=== PATIENT | male | born 1970 | race Caucasian/White ===

== ENCOUNTER → 2017-03-25 | Outpatient (CLI) | payer OTHER ==
[~2017-03-25] VITALS: Ht 175.3 cm; Wt 117.9 kg
[~2017-03-25] MED LIST: ACYCLOVIR 400400 MG PO; APAP500; ASPIR 8181 M1 PO; ATIVAN1 MG PO; BREO ELLIPTA 11 EACH IH; BREO ELLIPTA 21 EACH IH; DIOVAN 80 MG TA80 M1 PO; ERY-TAB500 MG PO; FLAGYL 250 MG250 MG PO; HYDROCODONE-AP1 EAC6 PO; HYDROXYZINE HCL25 M1 PO; HYDROXYZINE PAM25 M1 PO; IBUPROFEN 200200 M1 PO; LITHIUM CARBON300 M3 PO; LITHIUM CARBON300 MG PO; LITHIUM CARBON600 MG PO; NEURONTIN 300300 M1 PO; NEURONTIN600 MG PO; NEXIUM40 MG PO; OMEPRAZOLE 20 M20 M1 PO; PENICILLIN V P500 MG PO; PROAIR HFA8.5 GM IH; PROAIR HFA8.5 GM INH; SINGULAIR 10 MG10 M1 PO; SYMBICORT80 MCG/4.1 INH; TESTOSTERO200 MG/1 M IM; TRAMADOL 50 MG50 MG PO; TYLENOL325 MG PO; VENTOLIN17 GM INH; XOLAIR150 MG SUBQ; XOPENEX0.63 MG/3 IH
--- NOTE | ~2017-03-25 | P ---
[facility] [place] [address] PROCEDURE REPORT Name: TACOS VELEZ [facility] Room #: REG VERENA Aragon#: [id number] Admission: 03/25/17 Attend Phys: Patricia Avilez DO Discharge: Date of : 68 Report #: [id number] THIS REPORT FOR: //name// CC: Patricia Ernandez MD DATE OF SERVICE: 03/25/2017 He is patient of Dr. Brody Ernandez. INDICATIONS FOR PROCEDURE: Intermittent bouts of epigastric pain had awaken him from sleep, two to three times a month followed by complete bowel evacuation first of solid and hard stool and then towards the end he had diarrhea. The etiology of this is not clear. He also has epigastric pain from time to time and is uncomfortable to palpation today in the GI lab. DESCRIPTION OF PROCEDURE: Informed consent for this procedure was obtained prior to the administration of any medication. The risks of the procedure which include bleeding, perforation, infection, complications of sedation and the possibility I could miss something have been explained to the patient and he has indicated his consent by signing. Propofol was slowly titrated before and during this procedure and the colonoscopy that followed it. The [facility] upper videoscope was introduced through the upper esophageal sphincter and advanced under direct visualization to the descending duodenum. Findings are noted on withdrawal of the scope. The duodenal mucosa appears normal throughout its entirety. Pylorus, mild erythema is noted. Antrum, mild erythema is noted. Biopsies obtained times 2 from the body and the antrum of the stomach for histopathology to exclude H. pylori infection. Body, normal mucosa. Cardia and fundus, normal mucosa. Retroflex view did not reveal any abnormalities. The scope was withdrawn to the esophagus. The Z-line is appropriately located at the top of the gastric folds and appears normal. The esophageal mucosa has white exudative looking plaques that are adherent to the mucosa. Brushing were obtained from this area for the JESSE prep to make sure we do not miss fungal infection, these white plaques were distributed equally throughout the entire esophagus. The scope was withdrawn. The patient went to the recovery area in stable condition. He tolerated the procedure well. IMPRESSION: 1. White exudate in the esophagus, brushed for JESSE prep. 2. Mild antral erythema. Biopsy is pending. RECOMMENDATIONS: Are to await the biopsy results. We will ask that he continue his proton pump inhibitors. I think it would help with the [facility] and [facility] [address] [place] [address] PROCEDURE REPORT Name: TACOS VELEZ [facility] Room #: REG CLBridger Aragon#: [id number] Admission: 03/25/17 Attend Phys: Patricia Avilez DO Discharge: Date of : 68 Report #: [id number] constipation if he took Citrucel tablets 2 p.o. daily with 2 glasses of water. I would also recommend that he avoid caffeine and high fat foods as these can trigger colon spasms. I would also recommend that he continue proton pump inhibitors for his esophagitis which was grade 1. We will await the JESSE prep. Thank you very much once again for allowing me to participate in his care . PROCEDURE: Diagnostic colonoscopy. INDICATION FOR PROCEDURE: Evaluate intermittent abdominal pain followed by a complete bowel evacuation first of solid stool and then diarrhea. Informed consent for this procedure was obtained prior to the administration of any medication. The risks of the procedure which include bleeding, perforation, infection, complications of sedation and the possibility I could miss something have been explained to the patient and he has indicated his consent by signing. Propofol was slowly titrated before and during this procedure for patient comfort by the anesthesia service. The [employer] colonoscope was introduced through the anal sphincter and advanced under direct visualization to his terminal ileum. Findings are noted on withdrawal of the scope. The terminal ileal mucosa appears normal. Cecum, normal mucosa. Ascending colon, normal mucosa. Hepatic flexure, normal mucosa. Transverse colon, normal mucosa. Splenic flexure, normal mucosa. Descending colon, normal mucosa. Sigmoid colon, normal mucosa. Rectum, normal mucosa. Retroflex view did not reveal any abnormalities. Random biopsies were obtained x 3 from throughout the colon to evaluate microscopic etiologies of this patient's symptoms. Good hemostasis was noted after all biopsies. The scope was withdrawn. The patient went to the recovery area in stable condition. He tolerated the procedure well. IMPRESSION: Normal colonoscopic exam to the terminal ileum. RECOMMENDATIONS: For him to take Citrucel tabs 2 daily with 2 glasses of water as mentioned previously. He should avoid caffeine and high fat food as these will trigger colon spasms. Thank you very much once again for allowing me to participate in his care. <ELECTRONICALLY SIGNED> By: Patricia Avilez DO 03/26/17 0949 1342 0231 Patricia Avilez DO /nt
--- NOTE | ~2017-03-25 | S ---
[facility] [address] SURGICAL PATH RPT PROCEDURE Name: TACOS VELEZ [facility] Room #: REG [facility] PatriziaMarilou.#: [id number] Admission: 03/25/17 Date of : 68 Discharge: Report #: [id number] Path Case #: [id number] PATHOLOGY REPORT COLLECTION DATE: 03/25/2017 RECEIVED DATE: 03/26/2017 SUBMITTING PHYS: Dr. Patricia Avilez OTHER PHYS: Dr. Brody Ernandez SPECIMEN(S) RECEIVED: A.Random gastric bx B.Random colon bx * * * * * * * * * * * * FINAL DIAGNOSIS: A. "Random gastric BX", biopsy: - Gastric mucosa with mild chronic active gastritis, mild activity. - H. pylori organisms PRESENT in large numbers by immunohistochemical stain (block A1); control reacted appropriately. B. "Random colon BX", biopsy: - Colonic mucosa with mild reactive/hyperplastic changes; no evidence of active, lymphocytic, or collagenous colitis. PATHOLOGIST: Barbara Boyd M.D. REPORT ELECTRONICALLY SIGNED BY: Barbara Boyd M.D. DATE/TIME: 03/27/2017 22:23 * * * * * * * * * * * * GROSS PATHOLOGY: A. Received in formalin labeled "Tacos Velez random gastric BX," is a segment of schuster soft tissue measuring 0.8 x 0.3 x 0.2 cm in maximum dimension. The specimen is submitted entirely in cassette A1. B. Received in formalin labeled "Velez, Tacos, random colon BX," are 2 segments of schuster soft tissue measuring 0.7 x 0.2 x 0.2 cm in aggregate dimensions and ranging from 0.3 to 0.4 cm in maximum dimension. The specimen is submitted entirely in cassette B1. (MORRO; 03/26/2017) CLINICAL HISTORY: Abdominal pain, constipation/diarrhea INITIAL CPT CODE(S): A; 15297, 63055 B; 20161 Professional services performed by [facility] at [address] [address] SURGICAL PATH RPT PROCEDURE Name: TACOS VELEZ ZYGMUNT Room #: REG [facility] M.R.#: [id number] Admission: 03/25/17 Date of : 68 Discharge: Report #: [id number] Path Case #: [id number] , [place] [address] Technical services performed by [facility] at [address] [place] [address], [facility] [address], [place] [address]. [facility] [address] [place] [address] PHONE: [phone] DIRECTOR: Bernabe Alcantara M.D. * * * END OF REPORT * * *
== END | disposition home or self-care (01) ==
LOC: GI 09:50
DX: K29.50 Unspecified chronic gastritis without bleeding (principal); K31.89 Other diseases of stomach and duodenum; B96.81 Helicobacter pylori [H. pylori] as the cause of diseases classified elsewhere; K22.8 Other specified diseases of esophagus; I10 Essential (primary) hypertension; J45.909 Unspecified asthma, uncomplicated; G47.33 Obstructive sleep apnea (adult) (pediatric); F31.9 Bipolar disorder, unspecified; F41.9 Anxiety disorder, unspecified
CPT/HCPCS: 62110; 62900

== ENCOUNTER → 2017-04-30 | Outpatient (CLI) | payer OTHER | LOC: ULTRA 14:33 | DX: M79.601 Pain in right arm (principal) ==

== ENCOUNTER → 2019-01-24 | Outpatient (CLI) | payer OTHER ==
[~2019-01-24] MED LIST changes: +LEVSIN0.125 MG PO
== END ==
LOC: RAD 08:05
DX: R06.00 Dyspnea, unspecified (principal)

== ENCOUNTER → 2019-03-04 | Outpatient (CLI) | payer OTHER | LOC: CAT 09:30 | DX: M47.812 Spondylosis without myelopathy or radiculopathy, cervical region (principal); R55 Syncope and collapse; M48.02 Spinal stenosis, cervical region; M25.78 Osteophyte, vertebrae ==

== ENCOUNTER 2019-07-21 15:06 | Observation (INO) | payer OTHER ==
[~2019-07-21] VITALS: Ht 175.3 cm; Wt 113.4 kg
[2019-07-21 15:18] VITALS: BP 125/76
[2019-07-21 15:33] LABS: ABSOLUTE NEUTROPHILS 6.8 thou/uL (1.4-8.2); BASOPHILS 0.5 % (0.0-2.0); EOSINOPHILS 1.2 % (0.0-3.0); HEMATOCRIT 45.9 % (42.0-52.0); HEMOGLOBIN 15.4 gm/dL (14.0-18.0); MCH 30.7 pg (26.0-34.0); MCHC 33.6 g/dL (28.0-37.0); MCV 91.4 fL (80.0-100.0); MONOCYTES 5.2 % (1.0-8.0); PLATELET COUNT 201 thou/uL (150-400); POLYS 78.1 % (36.0-66.0); RBC 5.03 mil/uL (4.50-6.00); RDW 12.9 % (10.5-14.5); WBC 8.7 thou/uL (4.0-11.0)
[2019-07-21 15:42] LABS: ANION GAP 10 mmol/L (7-16); BUN 10 mg/dL (7-18); CALCIUM 9.4 mg/dL (8.5-10.1); CHLORIDE 104 mmol/L (98-107); CO2 27 mmol/L (21-32); CREATININE 1.5 mg/dL (0.7-1.3); GLUCOSE 165 mg/dL (74-106); POTASSIUM 3.8 mmol/L (3.5-5.1); SODIUM 141 mmol/L (136-145)
[2019-07-21 15:52] LABS: MAGNESIUM 2.1 mg/dL (1.8-2.4); SGOT 9 U/L (15-37); SGPT 14 U/L (30-65); TOTAL BILIRUBIN 0.3 mg/dL (<0.1-1.0); TROPONIN-I <0.06 ng/mL (<0.06)
--- NOTE | 2019-07-21 17:09 | EKG ---
[place] [address] [place] [address] ELECTROCARDIOGRAM REPORT [facility]: [facility] [id number] ������������������ Admission: 07/21/19 ������������������ Attend Phys: Discharge: ������������������ Date of : 68 Report #: [id number] ����������������������������������������������������������������� [id number] THIS REPORT FOR: //name// [facility] ED Test Date: 2019-07-21 Test Time: 15:15:47 Pat Name: TACOS VELEZ Department: Room: Gender: Airplane Captain: : 1970 Requested By: Omar Magdaleno Order Number: [id number] MD: Frederic Blank Measurements Intervals [place] Rate: 77 P: 50 MD: 169 QRS: 50 QRSD: 99 T: 50 QT: 370 QTc: 419 Interpretive Statements Sinus rhythm Normal tracing Compared to ECG 08/17/2015 10:01:57 No significant changes Electronically Signed On 07-21-2019 17:08:55 CDT by Frederic Blank [email or web address] ��������������������������������������������� <ELECTRONICALLY SIGNED> ���������������������������������������� By: Frederic Blank MD, [facility] ��������������������������������������������� 07/21/19 1708 1515 1515 Frederic Blank MD, FACC /EPI
[2019-07-21 17:48] VITALS: BP 122/76
[2019-07-21 17:54] VITALS: BP 102/54
[2019-07-21] MEDS ORDERED: BUSPIRONE HCL10 MG PO (18:11)
[2019-07-21 18:15] VITALS: BP 128/68
[2019-07-21 20:22] VITALS: BP 131/66
[2019-07-22 05:09] VITALS: BP 113/66
--- NOTE | 2019-07-22 06:36 | NUR ---
ASSUMED CARE AT 1900. PT DENIED ANY CHEST PAIN OVERNIGHT; HR 60-70 AND SR ON TELE. DENIES SOB, WORE CPAP AND CONT PULSE OX OVERNIGHT. DENIES NAUSEA. UP AD JENNA IN ROOM, EDUCATED TO CALL FOR HELP WITH CORDS NEEDED. REVIEWED MEDICATIONS AND DOSAGES WITH PT; ALSO DISCUSSED CONCERNS ABOUT LITHIUM LEVEL--ORDER FOR LAB DRAW OBTAINED. NO OTHER CONCERNS, WILL CONTINUE TO MONITOR.
[2019-07-22 07:28] VITALS: BP 111/66
[2019-07-22 09:04] LABS: CHOLESTEROL 154 mg/dL (<200); HDL CHOLESTEROL 26 mg/dL (>40); LDL CHOLESTEROL 108 mg/dL (<100); TC:HDL 5.9 Ratio (Not establshd); TRIGLYCERIDE 100 mg/dL (<150); VLDL 20 mg/dL (<40)
[2019-07-22 09:06] LABS: SERUM ASSESSMENT Clear
[2019-07-22] MEDS ORDERED: VENTOLIN HFA 1818 GM INH (12:18)
[2019-07-22 12:29] VITALS: BP 111/66
--- NOTE | 2019-07-22 15:38 | EXE ---
[facility] [address] [place] [address] STRESS ECHOCARDIOGRAM Name: TACOS VELEZ Room #: 360-P [facility] IN M.R.#: [id number] ������������� Admission: 07/21/19 ������������� Attend Phys: Brody Ernandez, Discharge: ��� 07/22/19 ������������� ��� Date of : 68 Date of Service: 07/22/19 1537 �� Report #: [id number] �������� ��������������������������������������������[id number] THIS REPORT FOR: //name// APPROVED REPORT Study performed: 07/22/2019 09:01:06 Exam: Stress Echocardiogram Indication: Hypertension, Chest pain Patient Location: In-Patient Stress Nurse: Judy Morton RN Room #: 360 Status: routine Ht: 5 ft 9 in HR: 67 bpm BP: 142/92 mmHg Rhythm: NSR Medical History Cardiac Risk Factors: HTN, FHX of CAD Exercise History: Sedentary Procedure The patient underwent an Exercise Stress Test using the Tay Protocol. Blood pressure, heart rate, and EKG were monitored. An Echocardiogram was performed by landscape management technician in four stages in quad fashion. At peak stress, four selected images were obtained and placed side by side with resting images for comparison. Stress Test Details Stress Test: Exercise stress testing was performed using a Tay protocol. HR Resting HR: 67 bpm Max Heart Rate (APMHR): 171 bpm Max HR Achieved: 116 bpm Target HR (85% APMHR): 145 bpm % of APMHR: 67 Recovery HR: 67 bpm HR response to stress: Normal HR response to stress BP Resting BP: 142/92 mmHg Max BP: 144/86 mmHg Recovery BP: 130/60 mmHg BP response to stress: Normal blood pressure response to stress. [facility] [address] [place] [address] STRESS ECHOCARDIOGRAM Name: VELEZTACOS KIRILL Room #: 360-P [facility]#: [id number] ������������� Admission: 07/21/19 ������������� Attend Phys: Brody Ernandez, Discharge: ��� 07/22/19 ������������� ��� Date of : 68 Date of Service: 07/22/19 1537 �� Report #: [id number] �������� ��������������������������������������������[id number] ECG Clinical Reason for Termination: Maximal effort Exercise duration: 6 min sec Highest Stage Achieved: Stage 2: 2.5 mph at 12% grade. Exercise capacity: 7.2 METs Overall Exercise Capacity for Age: Average Pre-Stress Echo The resting Echocardiogram showed normal left ventricular contractility with an estimated Ejection Fraction of about >55%. The resting echocardiogram demonstrated normal wall motion in all wall segments. Post-Stress Echo The stress Echocardiogram showed normal left ventricular contractility with an estimated Ejection Fraction of about 65-70%. Compared to rest, there were no stress-induced wall motion abnormalities. Conclusion No prior study available for comparison. Other Information Study Quality: Good ��������������������������������������������� <ELECTRONICALLY SIGNED> ���������������������������������������� By: Dale Enriquez MD, [facility] ��������������������������������������������� 07/22/19 1537 36 36 Dale Enriquez MD, FACC /INF
--- NOTE | 2019-07-22 15:40 | NUR ---
PT CARE WAS ASSUMED APPROX 0700. PT WAS ALERT AND ORIETNED X4. DENIED PAIN AND SOA. VSS. HAD STRESS ECHO THAT WAS NEGATIVE AND CARDIOLOGY RELEASED PT FOR DISCHARGE. DR VO WROTE DISCHARGE ORDERS AND PT WAS EDUCATED ON NEW INHALER. PT AWARE OF F/U APPTS AND DENIED QUESTIONS OR CONCERNS REGARDING POST HOSPITAL CARES. IV WAS TAKEN OUT AND TELE BOX WAS REMOVED. PT ESCORTED HIMSELF TO HIS PERSONAL VEHICLE OUT OF BUILDING AT APPROX 1400.
== END 2019-07-22 15:23 | disposition home or self-care (01) ==
LOC: ER 15:06 → EROBS 17:15 → 3W 17:15
PROVIDERS: Emergency Medicine; Nurse Practitioner Adult Health; ADMIT Family Medicine
DX: R07.89 Other chest pain (principal); J45.21 Mild intermittent asthma with (acute) exacerbation; F41.9 Anxiety disorder, unspecified; I10 Essential (primary) hypertension; F31.9 Bipolar disorder, unspecified; R55 Syncope and collapse; G47.33 Obstructive sleep apnea (adult) (pediatric); R74.8 Abnormal levels of other serum enzymes; Z79.899 Other long term (current) drug therapy; Z79.82 Long term (current) use of aspirin
CPT/HCPCS: 10879

== ENCOUNTER → 2021-01-10 | Outpatient (CLI) | payer OTHER ==
[~2021-01-10] MED LIST changes: +BUSPIRONE HCL10 MG PO; +VENTOLIN HFA 1818 GM INH
== END ==
LOC: ULTRA 11-14 09:25
PROVIDERS: ATTEND Family Medicine
DX: R10.11 Right upper quadrant pain (principal)

== ENCOUNTER 2021-10-26 15:42 | Emergency (ER) | payer OTHER ==
[~2021-10-26] VITALS: Ht 175.3 cm; Wt 117.9 kg
[2021-10-26 17:16] VITALS: BP 137/81
== END 2021-10-26 17:17 | disposition home or self-care (01) ==
LOC: ER 15:42
DX: H60.93 Unspecified otitis externa, bilateral (principal); J45.909 Unspecified asthma, uncomplicated; F41.9 Anxiety disorder, unspecified; I10 Essential (primary) hypertension; F31.9 Bipolar disorder, unspecified; G20 Parkinson's disease; Z79.51 Long term (current) use of inhaled steroids; Z79.891 Long term (current) use of opiate analgesic; Z79.899 Other long term (current) drug therapy; Z88.8 Allergy status to other drugs, medicaments and biological substances

== ENCOUNTER 2022-01-01 22:08 | Inpatient (IN) | payer OTHER ==
[~2022-01-01] VITALS: Ht 175.3 cm; Wt 120.2 kg
[2022-01-01 22:17] VITALS: BP 129/76
[2022-01-01 23:10] LABS: ABSOLUTE NEUTROPHILS 5.5 thou/uL (1.4-8.2); BASOPHILS 0.4 % (0.0-2.0); EOSINOPHILS 1.7 % (0.0-3.0); HEMATOCRIT 41.5 % (42.0-52.0); HEMOGLOBIN 13.9 gm/dL (14.0-18.0); MCHC 33.6 g/dL (28.0-37.0); MCV 89.5 fL (80.0-100.0); MONOCYTES 5.9 % (1.0-8.0); PLATELET COUNT 187 thou/uL (150-400); RBC 4.64 mil/uL (4.50-6.00); RDW 13.6 % (10.5-14.5); WBC 7.6 thou/uL (4.0-11.0)
[2022-01-01 23:14] LABS: CALCIUM 8.6 mg/dL (8.5-10.1); CREATININE 1.2 mg/dL (0.7-1.3); POTASSIUM 3.4 mmol/L (3.5-5.1)
[2022-01-01 23:25] LABS: ALBUMIN 3.4 g/dL (3.4-5.0); TOTAL BILIRUBIN 0.2 mg/dL (0.2-1.0); TOTAL PROTEIN 6.8 g/dL (6.4-8.2)
[2022-01-02] VITALS (7 sets, daily range): BP systolic 111–155; BP diastolic 66–94
[2022-01-02] MEDS ORDERED: ATIVAN1 M1 PO (02:28)
[2022-01-02] MEDS ORDERED: HYDROXYZINE HCL25 M2 PO (02:31)
--- NOTE | 2022-01-02 02:41 | NUR ---
PT PRESENTED TO ED WITH CENTER CHEST PAIN AND HEART PALPITATIONS. PT STATED HE HAS ANXIETY, BIPOLAR AND HAS BEEN WORKING FROM HOME FOR THE LAST TWO YEARS AND DOES NOT LEAVE HIS HOUSE OFTEN. PT ALSO REPORTED HAVING A RACING HEART FOR APPROXIMATELY 4 HOURS YESTERDAY AM. PT DENIES ANY CHEST PAIN FOR DISCOMFORT AT THIS TIME. INDEP WITH AMBULATION, GENERALIZED EDEMA, OBESE. 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 RESPIRATORY WILL ASSIST WITH HS CPAP.
[2022-01-02 05:49] LABS: CALCIUM 8.5 mg/dL (8.5-10.1); CREATININE 1.1 mg/dL (0.7-1.3); POTASSIUM 3.9 mmol/L (3.5-5.1)
[2022-01-02 06:14] LABS: CHOLESTEROL 128 mg/dL (<200); HDL CHOLESTEROL 29 mg/dL (>40); LDL CHOLESTEROL 80 mg/dL (<100); TC:HDL 4.4 Ratio (Not establshd); TRIGLYCERIDE 98 mg/dL (<150); VLDL 20 mg/dL (<40)
[2022-01-02 06:18] LABS: SERUM ASSESSMENT Clear
--- NOTE | 2022-01-02 07:56 | EKG ---
[place] [address] [address] [facility] [place] [address] ELECTROCARDIOGRAM REPORT [facility]: [facility] Room #: 200-I ADM IN M.R.#: [id number] Admission: 01/02/22 Attend Phys: Rey Bowles Discharge: Date of : 68 Report #: [id number] [facility] ED Test Date: 2022-01-01 Test Time: 22:12:21 Pat Name: TACOS VELEZ Department: Room: 200 Gender: M Tailor Fitter: АННА : 1970 Requested By: Marissa Soto Order Number: [id number] MD: Dariel Quiros Measurements Intervals [place] Rate: 73 P: 67 CO: 292 QRS: 60 QRSD: 89 T: 60 QT: 417 QTc: 460 Interpretive Statements Sinus rhythm Baseline wander in lead(s) I,III,aVR,aVL,aVF,V1,V2,V4,V5 Compared to ECG 07/21/2019 15:15:47 No significant change Electronically Signed On 01-02-2022 7:56:27 REHABILITATION SERVICES AIDE by Dariel Quiros [email or web address] <ELECTRONICALLY SIGNED> By: Dariel Quiros MD, [facility] 01/02/22 0756 11 11 Dariel Quiros MD, [facility] /EPI
[2022-01-02 10:22] LABS: ABSOLUTE NEUTROPHILS 4.7 thou/uL (1.4-8.2); BASOPHILS 0.5 % (0.0-2.0); HEMATOCRIT 40.9 % (42.0-52.0); HEMOGLOBIN 13.6 gm/dL (14.0-18.0); LYMPHOCYTES 21.7 % (24.0-44.0); MCHC 33.2 g/dL (28.0-37.0); MCV 90.2 fL (80.0-100.0); PLATELET COUNT 191 thou/uL (150-400); POLYS 68.8 % (36.0-66.0); RBC 4.53 mil/uL (4.50-6.00); RDW 13.2 % (10.5-14.5); WBC 6.9 thou/uL (4.0-11.0)
--- NOTE | 2022-01-02 13:39 | EXE ---
[facility] [place] [address] STRESS ECHOCARDIOGRAM Name: TACOS VELEZ [facility] Room #: 200-I ADM IN M.R.#: [id number] Admission: 01/02/22 Attend Phys: Rey Bowles Discharge: Date of : 68 Report #: [id number] THIS REPORT FOR: cc: Brody Ernandez MD, Neal A. MD Mancuso, Gerald M. MD [facility] ~ APPROVED REPORT Study performed: 01/02/2022 11:31:21 Exam: Stress Echocardiogram Indication: Dyspnea Patient Location: Echo lab Room #: 200 Status: routine Ht: 5 ft 9 in HR: 86 bpm BP: 138/92 mmHg Rhythm: NSR Medical History Medical History: HTN Cardiac Risk Factors: HTN Exercise History: Sedentary Procedure The patient underwent an Exercise Stress Test using the Tay Protocol. Blood pressure, heart rate, and EKG were monitored. An Echocardiogram was performed by hydroelectric production technician in four stages in quad fashion. At peak stress, four selected images were obtained and placed side by side with resting images for comparison. Stress Test Details Stress Test: Exercise stress testing was performed using a Tay protocol. HR Resting HR: 86 bpm Max Heart Rate (APMHR): 168 bpm Max HR Achieved: 129 bpm Target HR (85% APMHR): 142 bpm % of APMHR: 76 Recovery HR: 80 bpm HR response to stress: Normal HR response to stress BP Resting BP: 138/92 mmHg [facility] [address] [place] [address] STRESS ECHOCARDIOGRAM Name: TACOS VELEZ Room #: 200-I [facility] IN ..#: [id number] Admission: 01/02/22 Attend Phys: Rey Leyva Discharge: Date of : 68 Report #: [id number] Max BP: 190/96 mmHg Recovery BP: 142/80 mmHg BP response to stress: Normal blood pressure response to stress. ECG Clinical Reason for Termination: Maximal effort, Dyspnea Exercise duration: 4 min sec Highest Stage Achieved: Stage 2: 2.5 mph at 12% grade. Exercise capacity: 7 METs Overall Exercise Capacity for Age: Poor Pre-Stress Echo The resting Echocardiogram showed normal left ventricular contractility with an estimated Ejection Fraction of about >55%. The resting echocardiogram demonstrated normal wall motion in all wall segments. Post-Stress Echo The stress Echocardiogram showed normal left ventricular contractility with an estimated Ejection Fraction of about 65-70%. Compared to rest, there were no stress-induced wall motion abnormalities. Conclusion Clinical Response: Non-ischemic Exercise Capacity: Below Average Stress ECG Response: Non-ischemic Stress Echo Images: Non-ischemic Other Information Study Quality: Adequate <ELECTRONICALLY SIGNED> By: Dale Enriquez MD, FACC 01/02/22 1339 1339 1339 Dale Enriquez MD, FACC /INF
--- NOTE | 2022-01-02 14:36 | EKG ---
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 : 1970 Requested By: Marissa Soto Order Number: [id number] MD: Dariel Quiros Measurements Intervals [place] Rate: 68 P: 46 WA: 186 QRS: 36 QRSD: 129 T: 58 QT: 390 QTc: 418 Interpretive Statements Sinus rhythm Nonspecific intraventricular conduction delay Q V1 Compared to ECG 01/01/2022 22:12:21 Intraventricular conduction delay now present Electronically Signed On 01-02-2022 14:36:09 ASSISTANT PROFESSOR OF THEATER by Dariel Quiros [email or web address] <ELECTRONICALLY SIGNED> By: Dariel Quiros MD, [facility] 01/02/22 1436 0002 0002 Dariel Quiros MD FACCatalina /EPI
[2022-01-03 07:09] LABS: GLYCOHEMOGLOBIN (HGB A1C) 7.1 % (4.8-5.6)
== END 2022-01-02 13:20 | disposition home or self-care (01) | DRG 313 ==
LOC: ER 22:08 → EROBS 01-02 00:53 → 2N 01-02 01:19
PROVIDERS: Emergency Medicine; Nurse Practitioner Family; ADMIT Hospitalist; ATTEND Hospitalist
PROC: 5A09357 Assistance with Respiratory Ventilation, Less than 24 Consecutive Hours, Continuous Positive Airway Pressure (ICD-10-PCS; principal; 2022-01-02)
DX: R07.9 Chest pain, unspecified (principal); J45.909 Unspecified asthma, uncomplicated; E66.9 Obesity, unspecified; F41.9 Anxiety disorder, unspecified; F32.9 Major depressive disorder, single episode, unspecified; I10 Essential (primary) hypertension; Z60.2 Problems related to living alone; G47.33 Obstructive sleep apnea (adult) (pediatric); E87.6 Hypokalemia; Z20.822 Contact with and (suspected) exposure to COVID-19; Z88.8 Allergy status to other drugs, medicaments and biological substances; Z68.39 Body mass index [BMI] 39.0-39.9, adult; Z82.49 Family history of ischemic heart disease and other diseases of the circulatory system; Z82.3 Family history of stroke
CPT/HCPCS: 10081